=== PATIENT | female | born 1975 | race Caucasian/White ===

== ENCOUNTER 2021-12-31 13:22 | Outpatient (CLI) | payer SELFPAY ==
[2022-01-04 10:35] LABS: Kit Draw Collected
== END 2021-12-31 13:23 | disposition home or self-care (01) ==
LOC: ANHLAB 13:31
DX: E03.3 Postinfectious hypothyroidism (principal); K58.2 Mixed irritable bowel syndrome; E88.81 Metabolic syndrome and other insulin resistance; M04.9 Autoinflammatory syndrome, unspecified
CPT/HCPCS: 36415

== ENCOUNTER 2022-07-15 16:56 | Emergency (ER) | payer OTHER, SELFPAY ==
--- NOTE | ~2022-07-15 | XR_ITS ---
EXAMINATION: XR chest 2V DATE: 07/15/2022 17:44 INDICATION: Cough TECHNIQUE: PA and lateral views of the chest are obtained. COMPARISON: 01/27/2021 FINDINGS: The lungs are free of acute opacities. No pleural effusion or pneumothorax. The cardiomedia stinal silhouette is normal. There is severe thoracic spondylosis. Surgical clips in the right upper quadrant are likely from prior cholecystectomy. New surgical clips are also noted in the neck, likely related to thyroid surgery. IMPRESSION: 1. No acute cardiopulmonary abnormality. Reviewed, dictated and finalized at location F.
--- NOTE | 2022-07-15 16:57 | ED.URI ---
HPI - URI/Sore Throat General Chief Complaint: Upper Respiratory Infection Stated Complaint: EYE REDNESS/COLD SORE/COLD SYMPTOMS Time Seen by Provider: 07/15/22 16:57 Source: patient Mode of arrival: ambulatory Limitations: no limitations History of Present Illness HPI Narrative: Ms. Myers is a 47-year-old female patient presenting to the clinic today with complaints of eye redness, cold sores, and cold symptoms that began over the weekend. She reports she was seen in the urgent care for this issue and she had strep, flu, and COVID testing completed and they were negative at that time. She was given prescription for Tessalon, Tessalon Perles, and viscous lidocaine. She reports that she is still having a sore throat as well as runny nose and congestion. She reports this morning she woke up and her left eye was matted shut with yellow discharge. She has a cold sore to her left upper lip. Does have history of getting cold sores in the past. states she has been having a productive cough with green/brown phlegm. States her chest felt rather late earlier today MD elicited complaint: cough, nasal congestion and other (Fever blisters, eye irritation) Related Data Home Medications Medication Instructions Recorded Confirmed levothyroxine 112 mcg tablet 112 mcg DAILY 07/15/22 07/15/22 Allergies Allergy/AdvReac Type Severity Reaction Status Date / Time No Known Allergies Allergy Verified 07/15/22 17:14 Review of Systems Review of Systems: Pertinent positives per HPI. Patient denies any fever, chills, rash, headache, visual changes, dizziness, cough, shortness of breath, chest pain, palpitations, nausea, vomiting, diarrhea, constipation, abdominal pain, or any urinary issues. PMFSH Family History Family History Other Depression Family history of arthritis Social History Social History Smoking status: Never smoker Alcohol intake: never Comments At the time of my signature, I reviewed and agree with the nursing past medical, surgical, social, and family history. There is no relevant family history pertinent to the patient complaint. Exam Narrative: General: Well-developed, well nourished, in no apparent distress Head: Normocephalic, atraumatic Eyes: Pupils equally round and reactive to light bilaterally, EOM intact, right sclera and conjunctive clear, left sclera and conjunctive injected with yellow mucopurulent discharge, lids normal Ears: TMs intact dull, red, ear canals clear, no drainage, grossly hearing normal. Nose: Nares patent, clear nasal discharge, moderate inflammation, no sinus tenderness. Mouth: Oral pharynx without lesions or masses, good dentition, MMM. Neck: Supple, trachea midline, no enlargement of anterior or posterior cervical nodes, no thyroid masses or goiter palpable. Cardio: Regular rate and rhythm, s1 and s2 normal, no murmur appreciated. Resp: Faint crackles to the left posterior base lung field otherwise clear, no rhonchi, wheezing or rubs Course Course Emergency Course: Portions of this record may have been created with voice recognition software. Level of Care: Express Care Visit Vital Signs Vital signs: Vital Signs Temperature 37.1 C 07/15/22 17:05 Pulse Rate 99 07/15/22 17:05 Respiratory Rate 16 07/15/22 17:05 Blood Pressure 131/93 H 07/15/22 17:05 Pulse Oximetry 98 07/15/22 17:05 Temperature 37.1 C 07/15/22 17:05 Pulse Rate 99 07/15/22 17:05 Respiratory Rate 16 07/15/22 17:05 Blood Pressure 131/93 H 07/15/22 17:05 Pulse Oximetry 98 07/15/22 17:05 Oxygen Delivery Room Air 07/15/22 17:15 Vital signs reviewed MDM - URI/Sore Throat MDM Narrative Medical decision making narrative: At the time of visit patient is resting comfortably on the exam table. Chest x-ray was performed to rule out pneumonia. X-ray
[2022-07-15 17:05] VITALS: BP 131/93; PULSE 99; RESP 16; TEMP 37.1; O2SAT 98
== END 2022-07-15 18:17 | disposition home or self-care (01) ==
PROVIDERS: Emergency Provider Nurse Practitioner Family
DX: J40 Bronchitis, not specified as acute or chronic (principal); B00.1 Herpesviral vesicular dermatitis; H10.32 Unspecified acute conjunctivitis, left eye
CPT/HCPCS: 71046; 99213; G0463

== ENCOUNTER 2022-08-11 08:00 | Emergency (ER) | payer OTHER, SELFPAY ==
--- NOTE | 2022-08-11 08:11 | ED.URI ---
HPI - URI/Sore Throat General Chief Complaint: Upper Respiratory Infection Stated Complaint: SPOT ON THROAT Time Seen by Provider: 08/11/22 08:26 Source: patient and RN notes reviewed Mode of arrival: ambulatory Limitations: no limitations History of Present Illness HPI Narrative: 47-year-old female presents concern for a white spot on her throat with some sore throat. She reports she took an at-home COVID test which was negative. She reports she was recently treated with bronchitis and has some lingering cough. She denies difficulty swallowing, shortness of breath. She denies nasal congestion, rhinorrhea MD elicited complaint: sore throat Related Data Home Medications Medication Instructions Recorded Confirmed levothyroxine 112 mcg tablet 112 mcg DAILY 07/15/22 08/11/22 escitalopram oxalate 10 mg tablet mg 08/11/22 Allergies Allergy/AdvReac Type Severity Reaction Status Date / Time No Known Allergies Allergy Verified 08/11/22 08:07 Review of Systems Review of Systems: CONSTITUTIONAL: Denies malaise, chills, sweats, or fever. EYES: Denies visual changes, redness, or discharge. ENT: Denies rhinorrhea, congestion, sinus pain, otalgia. Reports sore throat. CARDIOVASCULAR: Denies chest pain, palpitations, or edema. RESPIRATORY: Reports cough. Denies dyspnea. GASTROINTESTINAL: Denies abdominal pain, nausea, vomiting, diarrhea SKIN: Denies rash or itching. MUSCULOSKELETAL: Denies myalgia. NEUROLOGIC: Denies headache. All systems reviewed & are unremarkable except as noted in HPI and below PMFSH Family History Family History Grandparent Asthma Diabetes mellitus Hypertension Other Diabetes mellitus Other Diabetes mellitus Mother Depression Thyroid disorder Sibling Depression Father Heart disease Other Family history of arthritis Social History Social History Smoking status: Never smoker Alcohol intake: current Substance use: never Comments At time of signature, agree with nursing past medical, surgical, social and family history. There is no relevant family history pertinent to the presenting complaint Exam Narrative: GENERAL: Well-appearing, well-nourished, and in no acute distress. HEAD: Normocephalic EYES: PERRLA, conjunctivae clear ENT: Nares clear. Mucous membranes moist. TM pearly caceres with dull light reflex on the left, sharp on the right; no tragal tenderness. Oropharynx mild erythematous with 1 white papule noted on the posterior oropharynx. Tonsils not enlarged and without exudate, no drooling, no hoarseness, no trismus, uvula midline. NECK: Supple. No lymphadenopathy CHEST: Clear to auscultation, breath sounds equal. No wheezing, rhonchi, rales, or stridor. No respiratory distress, speaks in full sentences. HEART: Regular rate and rhythm. No murmur heard. SKIN: Warm, dry, no rash. NEURO: Alert and oriented x3. PSYCH: Normal mood and affect Course Course Emergency Course: Patient is aware of diagnosis, understands and agrees to treatment plan. Anticipatory guidance given. Patient agrees to follow-up as directed and is aware of reasons to seek care at the emergency department. Portions of this record may have been created with voice recognition software Level of Care: Express Care Visit Vital Signs Vital signs: Vital Signs Temperature 98.4 F 08/11/22 08:15 Pulse Rate 100 08/11/22 08:15 Respiratory Rate 16 08/11/22 08:15 Blood Pressure 130/80 08/11/22 08:15 Pulse Oximetry 98 08/11/22 08:15 Temperature 98.4 F 08/11/22 08:15 Pulse Rate 100 08/11/22 08:15 Respiratory Rate 16 08/11/22 08:15 Blood Pressure 130/80 08/11/22 08:15 Pulse Oximetry 98 08/11/22 08:15 Reviewed. MDM - URI/Sore Throat MDM Narrative Medical decision making narrative: Differential diagnosis considered: Paul virus, strep pharyngitis, all
[2022-08-11 08:15] VITALS: BP 130/80; PULSE 100; RESP 16; TEMP 36.9; O2SAT 98
== END 2022-08-11 08:40 | disposition home or self-care (01) ==
PROVIDERS: Emergency Provider Nurse Practitioner
DX: J02.9 Acute pharyngitis, unspecified (principal); E89.0 Postprocedural hypothyroidism
CPT/HCPCS: 87081; 87880; 99213; G0463

== ENCOUNTER 2024-09-21 08:15 | Emergency (ER) | payer OTHER, SELFPAY ==
--- NOTE | 2024-09-21 08:27 | ED_ITS ---
HPI - Skin/Abscess/Foreign Bdy General Chief complaint: Skin/Abscess/Foreign Body Stated complaint: Cellulitis Time Seen by Provider: 09/21/24 08:47 Source: patient and RN notes reviewed Mode of arrival: ambulatory Limitations: dementia History of Present Illness HPI narrative: 49-year-old female presents concern for redness, tenderness on her right cheek. She reports she noticed yesterdayHer cheeks felt weird and warm. Reports and slightly tender. She denies fever, aches, chills sweats. Denies thigh swelling or vision changes. denies dental pain MD complaint: other (Redness) Related Data Home Medications ?Medication ?Instructions ?Recorded ?Confirmed ?Last Taken ?Type levothyroxine 112 mcg tablet 112 mcg DAILY 07/15/22 08/11/22 Unknown History escitalopram oxalate 10 mg tablet 10 mg PO DAILY 08/11/22 08/11/22 Unknown History levothyroxine 125 mcg tablet mcg 09/21/24 Unknown History Allergies Allergy/AdvReac Type Severity Reaction Status Date / Time No Known Allergies Allergy Verified 08/11/22 08:07 Review of Systems Review of Systems: CONSTITUTIONAL: Denies malaise, chills, sweats, or fever. EYES: Denies redness, or discharge. ENT: Denies rhinorrhea, congestion, swollen lips, swollen tongue CARDIOVASCULAR: Denies chest pain, palpitations, or edema. RESPIRATORY: Denies cough or dyspnea. GASTROINTESTINAL: Denies abdominal pain, nausea, vomiting SKIN: Reports redness, tenderness to the right cheek. Denies purulent drainage, vesicles, bullae, numbness, pain beyond proportion MUSCULOSKELETAL: Denies joint pain or myalgia. NEUROLOGIC: Denies headache. All systems reviewed & are unremarkable except as noted in HPI and below [facility] Family History Family History Grandparent Asthma Diabetes mellitus Hypertension Other Diabetes mellitus Other Diabetes mellitus Mother Depression Thyroid disorder Sibling Depression Father Heart disease Other Family history of arthritis Social History Social History Smoking status: Never smoker Alcohol intake: current Substance use: never Comments At time of signature, agree with nursing past medical, surgical, social and family history. There is no relevant family history pertinent to the presenting complaint Exam Narrative: GENERAL: Well-appearing, well-nourished, and in no acute distress. HEAD: Normocephalic, atraumatic. EYES: PERRLA, conjunctivae clear . No periorbital edema ENT: Mucous membranes moist. NECK: Supple. No lymphadenopathy CHEST: Clear to auscultation. No respiratory distress. HEART: Regular rate and rhythm. SKIN: Warm, dry. Mild Erythema, induration, tenderness, warmth with sharp margins noted to the right cheek. No fluctuation,vesicles, bullae, necrosis, ecchymosis, crepitus noted. NEURO: Alert and oriented x3. PSYCH: Normal mood and affect Course Course Emergency Course: Patient is aware of diagnosis, understands and agrees to treatment plan. Anticipatory guidance given. Patient agrees to follow-up as directed and is aware of reasons to seek care at the emergency department. Portions of this record may have been created with voice recognition software Level of Care: Express Care Visit Vital Signs Vital signs: Reviewed. MDM - Skin/Abscess/Foreign Bdy MDM Narrative Medical decision making narrative: I evaluated this in the express care. History is obtained from patient who is an independent historian and physical exam was performed.? Available medical records were reviewed. ? Exam findings and relevant testing show no acute concerns or changes; patient is non-toxic appearing and is in no distress. No risk factors or findings concerning for epidural abscess, diskitis, vertebral osteomyelitis, cord compression, cauda equina, vertebral fracture or bone malignancy, AAA, or pyelonephritis. Patient instructed to consider further imaging and workup through their primary care physician as an outpatient if symptoms persist. Does not appear at this time to be erythema multiforme, bullous, SJS, TEN; no evidence at this time to suggest RMSF, NSTI, endocarditis or Lyme disease; patient looks well, nontoxic and is tolerating oral intake; no neurologic signs or symptoms; no headache, photophobia or neck pain; afebrile.? Patient does not have history of of penetrating trauma, laceration, blunt trauma, recent surgery, immunosuppression, malignancy, obesity, alcoholism, corticosteroid use.? Discussed the importance of follow-up, patient agrees; question, cellulitis versus necrotizing soft tissue infection versus abscess.?? Patient is appropriate for outpatient treatment and follow-up. Critical Care Time Critical Care Time Critical Care Time: No Discharge Plan Discharge Clinical Impression: Erysipelas Patient Disposition: Home, Self-Care Condition: Stable Instructions: Antibiotic Form, Cellulitis (ED) Additional Instructions: Please follow up with your Primary Care Doctor within 48-72 hours - call for an appointment. Rest and elevate affected area; apply moist heat 3-4 times daily for 10-15 minutes. Take Motrin 600mg every 8 hours with food for pain. Please take Antibiotics as directed. If you experience any worsening redness, swelling, streaking (red lines), fever or chills please go to the ER Patient Language: Romanian Prescriptions: New amoxicillin 875 mg tablet 875 mg PO Q12H 10 Days Qty: 20 0RF No Action levothyroxine 112 mcg tablet 112 mcg DAILY escitalopram oxalate 10 mg tablet 10 mg PO DAILY levothyroxine 125 mcg tablet Follow-up/Referrals: PHYSICIAN,FACILITY MAINTENANCE MANAGER [Primary Care Provider] - Time of Disposition: 08:57
[2024-09-21 08:31] VITALS: BP 135/83; PULSE 69; RESP 16; TEMP 36.6; O2SAT 100
== END 2024-09-21 09:00 | disposition home or self-care (01) ==
PROVIDERS: Emergency Provider Nurse Practitioner
DX: A46 Erysipelas (principal); Z79.899 Other long term (current) drug therapy
CPT/HCPCS: 99213; G0463